=== PATIENT | female | born 1945 | race Caucasian/White ===

== ENCOUNTER 2017-03-01 07:41 | Day surgery (SDC) | payer OTHER, BC ==
[2017-02-28 12:19] VITALS: BMI 35.5
[2017-03-01 09:42] VITALS: TEMP 98
[2017-03-01 10:34] VITALS: BP 120/65; PULSE 78
--- NOTE | 2017-03-02 10:16 | PATH ---
Surgical Pathology Report Patient Name: CHINMAY ULLOA [facility]. Rec. #: [id number] /Age/Gender: 1945 (Age: 71) / F Account: [id number] Location: [facility]-ENDOSCOPY Taken: 03/01/2017 Received: 03/01/2017 Reported: 03/02/2017 Physicians: Karey Duarte M.D. Specimen(s) Received A: DISTAL TRANSVERSE COLON POLYP B: DESCENDING COLON POLYP Clinical History Preoperative diagnosis: Adenoma surveillance Postoperative diagnosis: Colon polyps, diverticulosis Final Diagnosis A. COLON, DISTAL TRANSVERSE, SNARE POLYPECTOMY: TUBULAR ADENOMA WITH EXTENSIVE THERMAL ARTIFACT. B. COLON, DESCENDING, SNARE POLYPECTOMY: TUBULAR ADENOMA WITH EXTENSIVE THERMAL ARTIFACT. Comment: Recommend correlation with clinical findings and follow up as clinically indicated. Electronically Signed Norris Jolly M.D. Gross Description A. Received in formalin, labeled "distal transverse colon polyp" are 2 suggs, irregular portions of soft tissue measuring 0.2 and 0.4 cm. in greatest dimension. The specimens are submitted in toto in one cassette. B. Received in formalin, labeled "descending colon polyp" is a suggs, irregular portion of soft tissue measuring 0.2 cm. in greatest dimension. The specimen is submitted in toto in one cassette. 03/01/201703/01/2017
== END 2017-03-01 10:30 | disposition home or self-care (01) ==
LOC: JASU-ENDO 07:41
PROVIDERS: ATTEND Internal Medicine Gastroenterology
PROC: 0DBL8ZX Excision of Transverse Colon, Via Natural or Artificial Opening Endoscopic, Diagnostic (ICD-10-PCS; 2017-03-01)
PROC: 0DBM8ZX Excision of Descending Colon, Via Natural or Artificial Opening Endoscopic, Diagnostic (ICD-10-PCS; principal; 2017-03-01 09:00)
DX: Z12.11 Encounter for screening for malignant neoplasm of colon (principal); K63.5 Polyp of colon; Z86.010 Personal history of colon polyps; K57.30 Diverticulosis of large intestine without perforation or abscess without bleeding; K64.8 Other hemorrhoids
CPT/HCPCS: 88305-TC

== ENCOUNTER 2021-10-15 04:30 | Day surgery (SDC) | payer OTHER, BC ==
[2021-10-15 09:27] VITALS: TEMP 97.7
[2021-10-15 09:51] VITALS: BP 112/66; PULSE 63; RESP 15
== END 2021-10-15 10:09 | disposition home or self-care (01) ==
LOC: JASU-ENDO 04:30
PROVIDERS: ATTEND Internal Medicine Gastroenterology
PROC: 0DBP8ZX Excision of Rectum, Via Natural or Artificial Opening Endoscopic, Diagnostic (ICD-10-PCS; principal; 2021-10-15 09:00)
DX: Z12.11 Encounter for screening for malignant neoplasm of colon (principal); Z86.010 Personal history of colon polyps; K62.1 Rectal polyp; K57.30 Diverticulosis of large intestine without perforation or abscess without bleeding
CPT/HCPCS: 88305-TC

== ENCOUNTER 2022-10-18 21:06 | Emergency (ER) | payer OTHER, BC ==
[2022-10-18 21:24] VITALS: BP 141/79; PULSE 87; RESP 16; TEMP 99.9; BMI 31.1
[2022-10-18] MEDS ORDERED: ACETAMINOPHEN 500 MG TABLET (FP) PO ONE (23:47)
[2022-10-18] MEDS ORDERED: AMOX TR/POT CLAV 875MG/125MG TABLETS (FP) PO ONE (23:50)
[2022-10-19] MEDS ORDERED: AMOX TR/POT CLAV 875MG/125MG TABLETS (FP) ONE (00:22)
[2022-10-19] MEDS ORDERED: ACETAMINOPHEN 500 MG TABLET (FP) ONE (00:23)
== END 2022-10-19 01:05 | disposition home or self-care (01) ==
LOC: JER 21:06
DX: R10.32 Left lower quadrant pain (principal); R50.9 Fever, unspecified; K57.92 Diverticulitis of intestine, part unspecified, without perforation or abscess without bleeding
CPT/HCPCS: 99283-25